=== PATIENT | male | born 1965 | race Caucasian/White ===

== ENCOUNTER → 2020-01-06 14:52 | Outpatient (CLI) | payer OTHER, SELFPAY ==
[2020-01-06 15:48] LABS: Hematocrit 29.1 % (41-53); Hemoglobin 9.4 g/dL (13.5-17.5); Mean Corpuscular HGB Conc 32.3 % (30-36); Mean Corpuscular Hemoglobin 27.4 PG (26-34); Mean Corpuscular Volume 84.8 fL (80-100); Platelet Count 250 X10^3/uL (150-400); Red Blood Cell Count 3.43 X10^6/uL (4.5-5.9); Red Cell Distribution Width 17.6 % (11.6-14.8); White Blood Cell Count 7.1 X10^3/uL (4.5-11.0)
[2020-01-06 15:52] LABS: Reticulocyte Count, Percent 3.9 % (0.87-2.60)
[2020-01-06 16:01] LABS: HEMOLYSIS < 15 (0-50); Iron 54 ug/dL (49-181)
[2020-01-06 16:12] LABS: Percent Iron Saturation 13 % (20-50); Total Iron Binding Capacity 432 ug/dL (261-462); Transferrin 328 mg/dL (206-381)
== END ==
PROVIDERS: PCP Student in an Organized Health Care Education/Training Program; Referring Provider Student in an Organized Health Care Education/Training Program; Visit Provider Student in an Organized Health Care Education/Training Program
DX: D62 Acute posthemorrhagic anemia (principal)
CPT/HCPCS: 36415; 83540; 83550; 85027; 85045

== ENCOUNTER → 2021-11-23 12:13 | Outpatient (CLI) | payer OTHER, SELFPAY ==
--- NOTE | 2021-11-23 12:15 | DI.RAD.S_ITS ---
PROCEDURE: XR SHOULDER LT MIN 2V INDICATIONS: left and right shoulder pain TECHNIQUE: 3 views of the shoulder were acquired. COMPARISON: [facility] Outside Film, CR, XR SHOULDER 2+ VIEWS LEFT, 09/06/2020, 13:59. [facility] Outside Film, CT, CT SHOULDER LEFT ARTHROGRAM, 01/02/2018, 9:21. [facility] Outside Film, MR, MR SHOULDER LEFT ARTHROGRAM, 01/02/2018, 10:25. FINDINGS: Bones: No acute fractures. Acromioclavicular interval widening is present measuring 16 mm. Chronic fracture deformity of the scapula is present. Periarticular osteophyte formation at the glenohumeral joint. Ill-defined erosions within the superior humeral head measuring 7 mm and within the superomedial humeral head measuring 13 mm, new since the prior examinations.. No suspicious bony lesions. Visualized ribs appear intact. Soft tissues: No suspicious soft tissue calcifications. IMPRESSION: 1. New humeral head erosions, of uncertain significance. Initial further assessment with MRI with and without intravenous contrast is recommended. 2. Acromioclavicular separation. 3. Glenohumeral joint osteoarthritis. 4. Chronic fracture deformity of the scapula. Dictated by: Chris Malhotra M.D. on 11/23/2021 at 14:25 Transcribed by: TEODORO on 11/23/2021 at 14:27 Approved by: Chris Malhotra M.D. on 11/23/2021 at 16:55
--- NOTE | 2021-11-23 12:15 | DI.RAD.S_ITS ---
PROCEDURE: XR SHOULDER RT MIN 2V INDICATIONS: Right shoulder pain, re-assess AC joint TECHNIQUE: 3 views of the shoulder were acquired. COMPARISON: None. FINDINGS: Bones: No fractures or dislocations. No suspicious bony lesions. Visualized ribs appear intact. Periarticular osteophyte formation at the acromioclavicular and glenohumeral joints. Soft tissues: No suspicious soft tissue calcifications. IMPRESSION: Osteoarthritis. No acute fracture. No osseous lesion. If symptoms and/or clinical suspicion for pathology persist, further assessment with repeat, or advanced imaging (e.g., CT, MRI, or bone scan) may be helpful for further assessment. Dictated by: Chris Malhotra M.D. on 11/23/2021 at 14:27 Transcribed by: TEODORO on 11/23/2021 at 14:28 Approved by: Chris Malhotra M.D. on 11/23/2021 at 16:55
== END ==
PROVIDERS: PCP Student in an Organized Health Care Education/Training Program; Referring Provider Student in an Organized Health Care Education/Training Program; Visit Provider Student in an Organized Health Care Education/Training Program
DX: S43.102A Unspecified dislocation of left acromioclavicular joint, initial encounter (principal); M19.011 Primary osteoarthritis, right shoulder; M19.012 Primary osteoarthritis, left shoulder; M25.511 Pain in right shoulder; M25.512 Pain in left shoulder; S42.102 Fracture of unspecified part of scapula, left shoulder
CPT/HCPCS: 73030

== ENCOUNTER → 2022-05-30 17:17 | Outpatient (CLI) | payer OTHER, SELFPAY ==
[2022-05-30 18:31] LABS: Prolactin 22.9 ng/mL (3.7-17.9)
[2022-05-30 18:46] LABS: TSH w/ Reflex to FT4 1.65 uIU/mL (0.47-4.68)
[2022-05-30 18:50] LABS: Cortisol PM (After 5PM) 13.8 ug/dL (1.7-14.1)
[2022-06-07 14:14] LABS: Testosterone % Fr + Wkly bound 23.3 % (9.0-46.0); Testosterone Fr+Wkly bound 40.4 ng/dL (40.0-250.0); Testosterone, Total 173.5 ng/dL (264.0-916.0)
== END ==
PROVIDERS: PCP Student in an Organized Health Care Education/Training Program; Referring Provider Student in an Organized Health Care Education/Training Program; Visit Provider Student in an Organized Health Care Education/Training Program
DX: G47.69 Other sleep related movement disorders (principal); R61 Generalized hyperhidrosis; R63.4 Abnormal weight loss; R68.89 Other general symptoms and signs
CPT/HCPCS: 36415; 82533; 84146; 84403; 84443

== ENCOUNTER → 2022-08-14 12:06 | Outpatient (CLI) | payer OTHER, SELFPAY ==
--- NOTE | 2022-08-14 12:08 | DI.RAD.S_ITS ---
PROCEDURE: XR LUMBAR SPINE 2-3V INDICATIONS: Mid and low back pain. Acute on chronic TECHNIQUE: 3 views of the lumbar spine were acquired. COMPARISON: None. FINDINGS: Bones: 5 [id number] vertebrae are present. There is normal bony alignment. No vertebral body compression fractures. No suspicious bony lesions. Mild, multilevel disc height loss. Soft tissues: Overlying bowel gas pattern is normal. No suspicious soft tissue calcifications. IMPRESSION: No acute, displaced fracture or traumatic subluxation. Mild degenerative disc disease. Dictated by: Constantino Garduno M.D. on 08/14/2022 at 14:19 Approved by: Constantino Garduno M.D. on 08/14/2022 at 14:19
--- NOTE | 2022-08-14 12:08 | DI.RAD.S_ITS ---
PROCEDURE: XR THORACIC SPINE 3V INDICATIONS: Mid and low back pain. Acute on chronic TECHNIQUE: 3 views of the thoracic spine were acquired. COMPARISON: None. FINDINGS: Bones: No fractures or dislocations. No suspicious bony lesions. 12 pairs of ribs are noted, and appear intact where visualized. Multilevel degenerative disc disease, [id number]. Soft tissues: No paravertebral stripe thickening. IMPRESSION: No acute, displaced fracture or traumatic subluxation. Mild to moderate, multilevel degenerative disc disease. Dictated by: Constantino Garduno M.D. on 08/14/2022 at 14:18 Approved by: Constantino Garduno M.D. on 08/14/2022 at 14:19
== END ==
PROVIDERS: PCP Student in an Organized Health Care Education/Training Program; Referring Provider Student in an Organized Health Care Education/Training Program; Visit Provider Student in an Organized Health Care Education/Training Program
DX: M51.34 Other intervertebral disc degeneration, thoracic region (principal); M51.36 Other intervertebral disc degeneration, lumbar region; M54.9 Dorsalgia, unspecified
CPT/HCPCS: 72072; 72100

== ENCOUNTER → 2024-04-23 16:04 | Outpatient (CLI) | payer MEDICARE, SELFPAY ==
--- NOTE | 2024-04-23 16:07 | DI.MRI.S_ITS ---
PROCEDURE: MR FOOT RT WO/W CON INDICATIONS: bone erosion TECHNIQUE: Multiphasic, multisequence MRI of the forefoot was performed, before and after intravenous contrast administration. COMPARISON: None. FINDINGS: Image quality: Excellent. Bones and joints: There is extensive soft tissue enhancement about the 1st metatarsal head, with associated erosion, concerning for gout with associated tophi. There is marked marrow edema of the 1st proximal phalanx, and the 1st metatarsal, with relative sparing of the 1st metatarsal base. Edema of both the tibial and fibula hallucal sesamoid, concerning for sesamoiditis versus reactive marrow edema. The mild degenerative changes of the 3rd tarsometatarsal joint, with mild subchondral marrow edema. No acute fracture. Soft tissues: The visualized plantar fascia is unremarkable. Muscles are grossly normal in signal. The flexor, and the extensor tendons are unremarkable. The Lisfranc ligament is intact. Mild 1st intermetatarsal bursitis. IMPRESSION: 1. Findings concerning for gout at the 1st metatarsophalangeal joint, with enhancing tophi, erosion, and marked associated marrow edema. Recommend clinical correlation or further evaluation with dual source CT. 2. Reactive marrow edema versus sesamoiditis of both the tibial and fibula hallucal sesamoid. Dictated by: Kayley Schwartz M.D. on 04/24/2024 at 10:38 Approved by: Kayley Schwartz M.D. on 04/24/2024 at 10:49
== END ==
LOC: MRI 16:06
PROVIDERS: PCP Nurse Practitioner; Referring Provider Orthopaedic Surgery Foot and Ankle Surgery; Visit Provider Orthopaedic Surgery Foot and Ankle Surgery
DX: M85.80 Other specified disorders of bone density and structure, unspecified site (principal)
CPT/HCPCS: 73720; A9579

== ENCOUNTER 2024-08-14 13:39 | Emergency (ER) | payer MEDICARE, SELFPAY ==
[2024-08-14] VITALS (74 sets, daily range): BP systolic 120–162; BP diastolic 72–106; PULSE 63–89; RESP 15–35; O2SAT 90–100
[2024-08-14] MEDS: LORazepam 2 MG/ML INJ IV (13:40)
--- NOTE | 2024-08-14 13:45 | ED_ITS ---
HPI - General Adult <Sohail Adair MD - Last Filed: 08/14/24 20:43> General Chief complaint: Seizure Stated complaint: seizure disorder Time Seen by Provider: 08/14/24 13:45 History of Present Illness HPI narrative: 59-year-old male arrived by EMS, with history of seizure disorder for which she has been taking Vimpat, generalized anxiety, atrial fibrillation, chronic Eliquis anticoagulation. Short EMS transport for suspected seizures, seemed to be shaking on the right side, lateral gaze to the right side, right lateral rotation of the neck, not seem to be moving his left side. On arrival there was no family available. Related Data Home Medications Medication Instructions Recorded Confirmed cholecalciferol (vitamin D3) 25 25 mcg PO DAILY 01/06/20 08/14/24 mcg (1,000 unit) capsule lacosamide 50 mg tablet 300 mg PO BID 11/23/21 08/14/24 atomoxetine 25 mg capsule 25 mg PO BID 08/14/24 08/14/24 escitalopram oxalate 20 mg tablet 30 mg PO DAILY 08/14/24 08/14/24 gabapentin 600 mg tablet 600 mg PO QID 08/14/24 08/14/24 hydroxyzine HCl 50 mg tablet 25 mg PO BID PRN anxiety 08/14/24 08/14/24 quetiapine 25 mg tablet (Seroquel) 75 mg PO BEDTIME 08/14/24 08/14/24 quetiapine 50 mg tablet (Seroquel) 50 mg PO QAM 08/14/24 08/14/24 Previous Rx's Medication Instructions Recorded clonazepam 0.5 mg tablet 0.5 mg PO BEDTIME PRN insomnia #30 12/18/22 tabs Allergies Allergy/AdvReac Type Severity Reaction Status Date / Time ketorolac [From Toradol] AdvReac Severe Hyponatremi Verified 09/26/22 13:04 a oxycodone AdvReac Severe hallucinations, Verified 09/26/22 13:04 delirium Patient History <Sohail Adair MD - Last Filed: 08/14/24 20:43> Medical History (Updated 08/14/24 @ 19:43 by Jeb Ignacio DO) Chronic left shoulder pain Allergic rhinitis Surgical History (Updated 06/01/21 @ 09:06 by João Armstrong MD) Status post mitral valve repair Exam <Sohail Adair MD - Last Filed: 08/14/24 20:43> Narrative Exam Narrative: GENERAL: On arrival patient with ongoing shaking activity. HEAD: Atraumatic. Normocephalic. EYES: Pupils equal round and reactive. Extraocular motions intact. No scleral icterus. No injection or drainage. ENT: Face and nose without obvious anterior trauma swelling, no obvious nosebleed. NECK: Trachea midline. Non tender CARDIOVASCULAR: Fast rate regular rhythm, without murmurs, gallops, or rubs. RESPIRATORY: Clear to auscultation. Breath sounds equal bilaterally. No wheezes, rales, or rhonchi. GASTROINTESTINAL: Abdomen soft, non-tender, nondistended. EXTREMITIES: No edema or joint tenderness. BACK: Nontender without deformity or crepitance. No flank tenderness. NEURO: AOx3. Looking around, unintelligible speech. Shaking activity of right upper extremity and right lower extremity, not seeming to move his left upper extremity or left lower extremity. Prefers right lateral gaze position, right lateral neck rotation position, seems to be flailing around with right upper arm and right upper leg, no movement left arm or leg. SKIN: No rash or erythema of visible areas Initial Vital Signs Initial Vital Signs: Vital Signs Respiratory Rate 18 08/14/24 13:40 <Jeb Ignacio DO - Last Filed: 08/14/24 20:08> Initial Vital Signs Initial Vital Signs: Vital Signs Respiratory Rate 18 08/14/24 13:40 Course <Sohail Adair MD - Last Filed: 08/14/24 20:43> Orders Ordered: ED Orders 08/14/24 13:40 Acetaminophen Stat Complete Blood Count AUTO DIFF Stat Comprehensive Metabolic Panel Stat Ethanol (ETOH) Stat PTT Partial Thromboplastin Emmanuel Stat Prolactin Stat Prothrombin Time INR Stat Salicylate Stat Thyroid Stimulating Hormone Stat 08/14/24 13:49 CT head/brain wo con Stat 08/14/24 13:54 Ammonia (NH3) Stat 08/14/24 14:30 Blood Culture Stat Lactate (Lactic Acid) Stat 08/14/24 14:56 Osmolality, Serum Stat 08/14/24 15:08 Urinalysis and Microscopic Stat Urine Culture Stat Urine Drug Screen, Rapid Stat 08/14/24 15:12 XR chest 1V Stat 08/14/24 15:52 Ammonia (NH3) Stat Lactate (Lactic Acid) Stat Discontinued Medications Sodium Chloride (Normal Saline 0.9%) 1,000 mls @ 1,000 mls/hr IV BOLUS ONE Stop: 08/14/24 14:47 Last Infusion: 08/14/24 15:38 Dose: Infused Documented By: Admin: 08/14/24 14:31 Dose: 1,000 mls/hr Documented By: CLIF Levetiracetam 2,000 mg/ Sodium (Chloride) 120 mls @ 480 mls/hr IV NOW ONE Stop: 08/14/24 14:37 Last Infusion: 08/14/24 15:14 Dose: Infused Documented By: Admin: 08/14/24 14:50 Dose: 480 mls/hr Documented By: MANDI Lorazepam (Lorazepam 2 Mg/Ml Inj) 2 mg IV NOW ONE Stop: 08/14/24 13:48 Last Admin: 08/14/24 13:40 Dose: 2 mg Documented By: CLIF Vital Signs Vital signs: Vital Signs - 8 hr 08/14/24 13:40 08/14/24 13:41 08/14/24 13:44 Pulse Rate 84 89 Respiratory Rate 18 26 H Blood Pressure 162/97 H Pulse Oximetry 99 99 Oxygen Delivery Method Room Air Oxygen Flow Rate 08/14/24 13:45 08/14/24 13:45 08/14/24 13:55 Pulse Rate 89 Respiratory Rate Blood Pressure 162/97 H 156/96 H Pulse Oximetry 95 Oxygen Delivery Method Oxygen Flow Rate 08/14/24 13:55 08/14/24 14:00 08/14/24 14:00 Pulse Rate 83 84 Respiratory Rate 25 H 26 H Blood Pressure 144/89 H Pulse Oximetry 94 95 Oxygen Delivery Method Oxygen Flow Rate 08/14/24 14:05 08/14/24 14:05 08/14/24 14:10 Pulse Rate 81 80 Respiratory Rate 23 22 Blood Pressure 136/86 Pulse Oximetry 98 97 Oxygen Delivery Method Oxygen Flow Rate 08/14/24 14:10 08/14/24 14:19 08/14/24 14:19 Pulse Rate 78 Respiratory Rate 16 Blood Pressure 130/85 120/81 Pulse Oximetry 98 Oxygen Delivery Method Nasal Cannula Oxygen Flow Rate 2 08/14/24 14:20 08/14/24 14:20 08/14/24 14:25 Pulse Rate 78 77 Respiratory Rate 16 15 Blood Pressure 131/81 Pulse Oximetry 96 Oxygen Delivery Method Oxygen Flow Rate 08/14/24 14:25 08/14/24 14:30 08/14/24 14:30 Pulse Rate 76 Respiratory Rate 25 H Blood Pressure 128/88 133/85 Pulse Oximetry 90 L Oxygen Delivery Method Oxygen Flow Rate 08/14/24 14:35 08/14/24 14:35 08/14/24 14:40 Pulse Rate 75 74 Respiratory Rate 22 20 Blood Pressure 132/82 Pulse Oximetry 93 91 Oxygen Delivery Method Oxygen Flow Rate 08/14/24 14:40 08/14/24 14:45 08/14/24 14:45 Pulse Rate 76 Respiratory Rate 25 H Blood Pressure 137/88 134/85 Pulse Oximetry 93 Oxygen Delivery Method Oxygen Flow Rate 08/14/24 14:50 08/14/24 14:50 08/14/24 14:55 Pulse Rate 77 74 Respiratory Rate 19 23 Blood Pressure 132/82 Pulse Oximetry 94 94 Oxygen Delivery Method Oxygen Flow Rate 08/14/24 14:55 08/14/24 15:00 08/14/24 15:05 Pulse Rate 79 76 Respiratory Rate 35 H 28 H Blood Pressure 136/84 Pulse Oximetry 99 97 Oxygen Delivery Method Oxygen Flow Rate 08/14/24 15:05 08/14/24 15:45 08/14/24 15:45 Pulse Rate 80 Respiratory Rate 19 Blood Pressure 133/79 124/73 Pulse Oximetry 94 Oxygen Delivery Method Room Air Oxygen Flow Rate 08/14/24 15:50 08/14/24 15:50 08/14/24 15:55 Pulse Rate 80 78 Respiratory Rate 17 18 Blood Pressure 124/76 Pulse Oximetry 96 96 Oxygen Delivery Method Oxygen Flow Rate 08/14/24 15:55 08/14/24 16:00 08/14/24 16:00 Pulse Rate 80 Respiratory Rate 18 Blood Pressure 131/89 134/87 Pulse Oximetry Oxygen Delivery Method Oxygen Flow Rate 08/14/24 16:05 08/14/24 16:05 08/14/24 16:10 Pulse Rate 76 76 Respiratory Rate 19 19 Blood Pressure 126/81 Pulse Oximetry 94 94 Oxygen Delivery Method Oxygen Flow Rate 08/14/24 16:10 08/14/24 16:15 08/14/24 16:15 Pulse Rate 77 Respiratory Rate 20 Blood Pressure 140/85 143/88 H Pulse Oximetry 96 Oxygen Delivery Method Oxygen Flow Rate 08/14/24 16:20 08/14/24 16:20 08/14/24 16:25 Pulse Rate 75 Respiratory Rate 18 Blood Pressure 131/81 132/79 Pulse Oximetry 95 Oxygen Delivery Method Nasal Cannula Oxygen Flow Rate 08/14/24 16:25 08/14/24 16:30 08/14/24 16:30 Pulse Rate 75 69 Respiratory Rate 18 17 Blood Pressure 130/85 Pulse Oximetry 95 96 Oxygen Delivery Method Oxygen Flow Rate 08/14/24 16:35 08/14/24 16:35 08/14/24 16:40 Pulse Rate 74 69 Respiratory Rate 17 17 Blood Pressure 134/83 Pulse Oximetry 95 98 Oxygen Delivery Method Oxygen Flow Rate 08/14/24 16:40 08/14/24 16:45 08/14/24 16:45 Pulse Rate 77 Respiratory Rate 18 Blood Pressure 137/86 139/92 H Pulse Oximetry 95 Oxygen Delivery Method Oxygen Flow Rate 08/14/24 16:50 08/14/24 16:50 08/14/24 16:55 Pulse Rate 72 70 Respiratory Rate 17 18 Blood Pressure 139/97 H Pulse Oximetry 97 97 Oxygen Delivery Method Oxygen Flow Rate 08/14/24 16:55 08/14/24 17:00 08/14/24 17:00 Pulse Rate 70 Respiratory Rate 17 Blood Pressure 144/100 H 153/87 H Pulse Oximetry 97 Oxygen Delivery Method Oxygen Flow Rate 08/14/24 17:05 08/14/24 17:05 08/14/24 17:10 Pulse Rate 85 Respiratory Rate 17 Blood Pressure 156/97 H 156/101 H Pulse Oximetry 96 Oxygen Delivery Method Oxygen Flow Rate 08/14/24 17:10 08/14/24 17:15 08/14/24 17:15 Pulse Rate 69 73 Respiratory Rate 15 17 Blood Pressure 158/106 H Pulse Oximetry 99 95 Oxygen Delivery Method Oxygen Flow Rate 08/14/24 17:20 08/14/24 17:20 08/14/24 17:25 Pulse Rate 68 70 Respiratory Rate 18 16 Blood Pressure 154/93 H Pulse Oximetry 98 98 Oxygen Delivery Method Oxygen Flow Rate 08/14/24 17:25 08/14/24 17:30 08/14/24 17:30 Pulse Rate 73 Respiratory Rate 18 Blood Pressure 148/95 H 146/102 H Pulse Oximetry 98 Oxygen Delivery Method Room Air Oxygen Flow Rate 08/14/24 17:35 08/14/24 17:35 08/14/24 17:40 Pulse Rate 71 75 Respiratory Rate 18 15 Blood Pressure 135/88 Pulse Oximetry 97 97 Oxygen Delivery Method Oxygen Flow Rate 08/14/24 17:40 08/14/24 17:45 08/14/24 17:45 Pulse Rate 72 Respiratory Rate 15 Blood Pressure 154/94 H 145/89 H Pulse Oximetry 97 Oxygen Delivery Method Oxygen Flow Rate 08/14/24 17:50 08/14/24 17:50 08/14/24 17:55 Pulse Rate 70 Respiratory Rate 18 Blood Pressure 148/90 H 137/87 Pulse Oximetry 97 Oxygen Delivery Method Room Air Oxygen Flow Rate 08/14/24 17:55 08/14/24 18:00 08/14/24 18:00 Pulse Rate 73 73 Respiratory Rate 16 16 Blood Pressure 149/92 H Pulse Oximetry 96 95 Oxygen Delivery Method Oxygen Flow Rate 08/14/24 18:06 08/14/24 18:06 08/14/24 18:10 Pulse Rate 74 Respiratory Rate 16 Blood Pressure 137/81 138/84 Pulse Oximetry 95 Oxygen Delivery Method Room Air Oxygen Flow Rate 08/14/24 18:10 08/14/24 18:15 08/14/24 18:15 Pulse Rate 75 72 Respiratory Rate 17 17 Blood Pressure 126/79 Pulse Oximetry 95 97 Oxygen Delivery Method Oxygen Flow Rate 08/14/24 18:20 08/14/24 18:20 08/14/24 18:25 Pulse Rate 74 74 Respiratory Rate 17 16 Blood Pressure 132/84 Pulse Oximetry 94 94 Oxygen Delivery Method Oxygen Flow Rate 08/14/24 18:25 08/14/24 18:30 08/14/24 18:30 Pulse Rate 72 Respiratory Rate 17 Blood Pressure 137/85 138/88 Pulse Oximetry 94 Oxygen Delivery Method Oxygen Flow Rate 08/14/24 18:35 08/14/24 18:35 08/14/24 18:40 Pulse Rate 72 69 Respiratory Rate 16 18 Blood Pressure 153/94 H Pulse Oximetry 95 96 Oxygen Delivery Method Oxygen Flow Rate 08/14/24 18:40 08/14/24 18:45 08/14/24 18:45 Pulse Rate 69 Respiratory Rate 17 Blood Pressure 141/92 H 142/94 H Pulse Oximetry 95 Oxygen Delivery Method Oxygen Flow Rate 08/14/24 18:50 08/14/24 18:50 08/14/24 18:55 Pulse Rate 72 68 Respiratory Rate 17 17 Blood Pressure 142/92 H Pulse Oximetry 96 94 Oxygen Delivery Method Oxygen Flow Rate 08/14/24 18:55 08/14/24 19:00 08/14/24 19:00 Pulse Rate 71 Respiratory Rate 20 Blood Pressure 140/90 154/102 H Pulse Oximetry 97 Oxygen Delivery Method Oxygen Flow Rate 08/14/24 19:05 08/14/24 19:05 08/14/24 19:10 Pulse Rate 69 68 Respiratory Rate 24 20 Blood Pressure 141/104 H Pulse Oximetry 97 97 Oxygen Delivery Method Oxygen Flow Rate 08/14/24 19:10 08/14/24 19:16 08/14/24 19:16 Pulse Rate 69 Respiratory Rate 30 H Blood Pressure 147/104 H 150/96 H Pulse Oximetry 96 Oxygen Delivery Method Oxygen Flow Rate 08/14/24 19:20 08/14/24 19:20 08/14/24 19:25 Pulse Rate 67 67 Respiratory Rate 20 24 Blood Pressure 141/94 H Pulse Oximetry 96 97 Oxygen Delivery Method Oxygen Flow Rate 08/14/24 19:25 08/14/24 19:30 08/14/24 19:30 Pulse Rate 67 Respiratory Rate 22 Blood Pressure 142/97 H 158/72 H Pulse Oximetry 97 Oxygen Delivery Method Oxygen Flow Rate 08/14/24 19:36 08/14/24 19:36 08/14/24 19:40 Pulse Rate 67 67 Respiratory Rate 22 24 Blood Pressure 153/83 H Pulse Oximetry 99 97 Oxygen Delivery Method Oxygen Flow Rate 08/14/24 19:40 08/14/24 19:45 08/14/24 19:45 Pulse Rate 65 Respiratory Rate 24 Blood Pressure 144/88 H 122/80 Pulse Oximetry 98 Oxygen Delivery Method Oxygen Flow Rate 08/14/24 19:50 08/14/24 19:50 08/14/24 19:55 Pulse Rate 63 64 Respiratory Rate 26 H 22 Blood Pressure 139/95 H Pulse Oximetry 97 97 Oxygen Delivery Method Oxygen Flow Rate 08/14/24 19:55 08/14/24 20:00 08/14/24 20:00 Pulse Rate 63 Respiratory Rate 22 Blood Pressure 142/95 H 124/86 Pulse Oximetry 97 Oxygen Delivery Method Oxygen Flow Rate 08/14/24 20:05 08/14/24 20:05 08/14/24 20:10 Pulse Rate 64 Respiratory Rate 20 Blood Pressure 124/87 154/96 H Pulse Oximetry 97 Oxygen Delivery Method Oxygen Flow Rate 08/14/24 20:10 08/14/24 20:15 08/14/24 20:15 Pulse Rate 65 67 Respiratory Rate 26 H 18 Blood Pressure 150/95 H Pulse Oximetry 97 97 Oxygen Delivery Method Oxygen Flow Rate <Jeb Ignacio, DO - Last Filed: 08/14/24 20:08> Orders Ordered: ED Orders 08/14/24 13:40 Acetaminophen Stat Complete Blood Count AUTO DIFF Stat Comprehensive Metabolic Panel Stat Ethanol (ETOH) Stat PTT Partial Thromboplastin Emmanuel Stat Prolactin Stat Prothrombin Time INR Stat Salicylate Stat Thyroid Stimulating Hormone Stat 08/14/24 13:49 CT head/brain wo con Stat 08/14/24 13:54 Ammonia (NH3) Stat 08/14/24 14:30 Blood Culture Stat Lactate (Lactic Acid) Stat 08/14/24 14:56 Osmolality, Serum Stat 08/14/24 15:08 Urinalysis and Microscopic Stat Urine Culture Stat Urine Drug Screen, Rapid Stat 08/14/24 15:12 XR chest 1V Stat 08/14/24 15:52 Ammonia (NH3) Stat Lactate (Lactic Acid) Stat Discontinued Medications Sodium Chloride (Normal Saline 0.9%) 1,000 mls @ 1,000 mls/hr IV BOLUS ONE Stop: 08/14/24 14:47 Last Infusion: 08/14/24 15:38 Dose: Infused Documented By: Admin: 08/14/24 14:31 Dose: 1,000 mls/hr Documented By: CLIF Levetiracetam 2,000 mg/ Sodium (Chloride) 120 mls @ 480 mls/hr IV NOW ONE Stop: 08/14/24 14:37 Last Infusion: 08/14/24 15:14 Dose: Infused Documented By: Admin: 08/14/24 14:50 Dose: 480 mls/hr Documented By: MANDI Lorazepam (Lorazepam 2 Mg/Ml Inj) 2 mg IV NOW ONE Stop: 08/14/24 13:48 Last Admin: 08/14/24 13:40 Dose: 2 mg Documented By: CLIF Vital Signs Vital signs: Vital Signs - 8 hr 08/14/24 13:40 08/14/24 13:41 08/14/24 13:44 Pulse Rate 84 89 Respiratory Rate 18 26 H Blood Pressure 162/97 H Pulse Oximetry 99 99 Oxygen Delivery Method Room Air Oxygen Flow Rate 08/14/24 13:45 08/14/24 13:45 08/14/24 13:55 Pulse Rate 89 Respiratory Rate Blood Pressure 162/97 H 156/96 H Pulse Oximetry 95 Oxygen Delivery Method Oxygen Flow Rate 08/14/24 13:55 08/14/24 14:00 08/14/24 14:00 Pulse Rate 83 84 Respiratory Rate 25 H 26 H Blood Pressure 144/89 H Pulse Oximetry 94 95 Oxygen Delivery Method Oxygen Flow Rate 08/14/24 14:05 08/14/24 14:05 08/14/24 14:10 Pulse Rate 81 80 Respiratory Rate 23 22 Blood Pressure 136/86 Pulse Oximetry 98 97 Oxygen Delivery Method Oxygen Flow Rate 08/14/24 14:10 08/14/24 14:19 08/14/24 14:19 Pulse Rate 78 Respiratory Rate 16 Blood Pressure 130/85 120/81 Pulse Oximetry 98 Oxygen Delivery Method Nasal Cannula Oxygen Flow Rate 2 08/14/24 14:20 08/14/24 14:20 08/14/24 14:25 Pulse Rate 78 77 Respiratory Rate 16 15 Blood Pressure 131/81 Pulse Oximetry 96 Oxygen Delivery Method Oxygen Flow Rate 08/14/24 14:25 08/14/24 14:30 08/14/24 14:30 Pulse Rate 76 Respiratory Rate 25 H Blood Pressure 128/88 133/85 Pulse Oximetry 90 L Oxygen Delivery Method Oxygen Flow Rate 08/14/24 14:35 08/14/24 14:35 08/14/24 14:40 Pulse Rate 75 74 Respiratory Rate 22 20 Blood Pressure 132/82 Pulse Oximetry 93 91 Oxygen Delivery Method Oxygen Flow Rate 08/14/24 14:40 08/14/24 14:45 08/14/24 14:45 Pulse Rate 76 Respiratory Rate 25 H Blood Pressure 137/88 134/85 Pulse Oximetry 93 Oxygen Delivery Method Oxygen Flow Rate 08/14/24 14:50 08/14/24 14:50 08/14/24 14:55 Pulse Rate 77 74 Respiratory Rate 19 23 Blood Pressure 132/82 Pulse Oximetry 94 94 Oxygen Delivery Method Oxygen Flow Rate 08/14/24 14:55 08/14/24 15:00 08/14/24 15:05 Pulse Rate 79 76 Respiratory Rate 35 H 28 H Blood Pressure 136/84 Pulse Oximetry 99 97 Oxygen Delivery Method Oxygen Flow Rate 08/14/24 15:05 08/14/24 15:45 08/14/24 15:45 Pulse Rate 80 Respiratory Rate 19 Blood Pressure 133/79 124/73 Pulse Oximetry 94 Oxygen Delivery Method Room Air Oxygen Flow Rate 08/14/24 15:50 08/14/24 15:50 08/14/24 15:55 Pulse Rate 80 78 Respiratory Rate 17 18 Blood Pressure 124/76 Pulse Oximetry 96 96 Oxygen Delivery Method Oxygen Flow Rate 08/14/24 15:55 08/14/24 16:00 08/14/24 16:00 Pulse Rate 80 Respiratory Rate 18 Blood Pressure 131/89 134/87 Pulse Oximetry Oxygen Delivery Method Oxygen Flow Rate 08/14/24 16:05 08/14/24 16:05 08/14/24 16:10 Pulse Rate 76 76 Respiratory Rate 19 19 Blood Pressure 126/81 Pulse Oximetry 94 94 Oxygen Delivery Method Oxygen Flow Rate 08/14/24 16:10 08/14/24 16:15 08/14/24 16:15 Pulse Rate 77 Respiratory Rate 20 Blood Pressure 140/85 143/88 H Pulse Oximetry 96 Oxygen Delivery Method Oxygen Flow Rate 08/14/24 16:20 08/14/24 16:20 08/14/24 16:25 Pulse Rate 75 Respiratory Rate 18 Blood Pressure 131/81 132/79 Pulse Oximetry 95 Oxygen Delivery Method Nasal Cannula Oxygen Flow Rate 08/14/24 16:25 08/14/24 16:30 08/14/24 16:30 Pulse Rate 75 69 Respiratory Rate 18 17 Blood Pressure 130/85 Pulse Oximetry 95 96 Oxygen Delivery Method Oxygen Flow Rate 08/14/24 16:35 08/14/24 16:35 08/14/24 16:40 Pulse Rate 74 69 Respiratory Rate 17 17 Blood Pressure 134/83 Pulse Oximetry 95 98 Oxygen Delivery Method Oxygen Flow Rate 08/14/24 16:40 08/14/24 16:45 08/14/24 16:45 Pulse Rate 77 Respiratory Rate 18 Blood Pressure 137/86 139/92 H Pulse Oximetry 95 Oxygen Delivery Method Oxygen Flow Rate 08/14/24 16:50 08/14/24 16:50 08/14/24 16:55 Pulse Rate 72 70 Respiratory Rate 17 18 Blood Pressure 139/97 H Pulse Oximetry 97 97 Oxygen Delivery Method Oxygen Flow Rate 08/14/24 16:55 08/14/24 17:00 08/14/24 17:00 Pulse Rate 70 Respiratory Rate 17 Blood Pressure 144/100 H 153/87 H Pulse Oximetry 97 Oxygen Delivery Method Oxygen Flow Rate 08/14/24 17:05 08/14/24 17:05 08/14/24 17:10 Pulse Rate 85 Respiratory Rate 17 Blood Pressure 156/97 H 156/101 H Pulse Oximetry 96 Oxygen Delivery Method Oxygen Flow Rate 08/14/24 17:10 08/14/24 17:15 08/14/24 17:15 Pulse Rate 69 73 Respiratory Rate 15 17 Blood Pressure 158/106 H Pulse Oximetry 99 95 Oxygen Delivery Method Oxygen Flow Rate 08/14/24 17:20 08/14/24 17:20 08/14/24 17:25 Pulse Rate 68 70 Respiratory Rate 18 16 Blood Pressure 154/93 H Pulse Oximetry 98 98 Oxygen Delivery Method Oxygen Flow Rate 08/14/24 17:25 08/14/24 17:30 08/14/24 17:30 Pulse Rate 73 Respiratory Rate 18 Blood Pressure 148/95 H 146/102 H Pulse Oximetry 98 Oxygen Delivery Method Room Air Oxygen Flow Rate 08/14/24 17:35 08/14/24 17:35 08/14/24 17:40 Pulse Rate 71 75 Respiratory Rate 18 15 Blood Pressure 135/88 Pulse Oximetry 97 97 Oxygen Delivery Method Oxygen Flow Rate 08/14/24 17:40 08/14/24 17:45 08/14/24 17:45 Pulse Rate 72 Respiratory Rate 15 Blood Pressure 154/94 H 145/89 H Pulse Oximetry 97 Oxygen Delivery Method Oxygen Flow Rate 08/14/24 17:50 08/14/24 17:50 08/14/24 17:55 Pulse Rate 70 Respiratory Rate 18 Blood Pressure 148/90 H 137/87 Pulse Oximetry 97 Oxygen Delivery Method Room Air Oxygen Flow Rate 08/14/24 17:55 08/14/24 18:00 08/14/24 18:00 Pulse Rate 73 73 Respiratory Rate 16 16 Blood Pressure 149/92 H Pulse Oximetry 96 95 Oxygen Delivery Method Oxygen Flow Rate 08/14/24 18:06 08/14/24 18:06 08/14/24 18:10 Pulse Rate 74 Respiratory Rate 16 Blood Pressure 137/81 138/84 Pulse Oximetry 95 Oxygen Delivery Method Room Air Oxygen Flow Rate 08/14/24 18:10 08/14/24 18:15 08/14/24 18:15 Pulse Rate 75 72 Respiratory Rate 17 17 Blood Pressure 126/79 Pulse Oximetry 95 97 Oxygen Delivery Method Oxygen Flow Rate 08/14/24 18:20 08/14/24 18:20 08/14/24 18:25 Pulse Rate 74 74 Respiratory Rate 17 16 Blood Pressure 132/84 Pulse Oximetry 94 94 Oxygen Delivery Method Oxygen Flow Rate 08/14/24 18:25 08/14/24 18:30 08/14/24 18:30 Pulse Rate 72 Respiratory Rate 17 Blood Pressure 137/85 138/88 Pulse Oximetry 94 Oxygen Delivery Method Oxygen Flow Rate 08/14/24 18:35 08/14/24 18:35 08/14/24 18:40 Pulse Rate 72 69 Respiratory Rate 16 18 Blood Pressure 153/94 H Pulse Oximetry 95 96 Oxygen Delivery Method Oxygen Flow Rate 08/14/24 18:40 08/14/24 18:45 08/14/24 18:45 Pulse Rate 69 Respiratory Rate 17 Blood Pressure 141/92 H 142/94 H Pulse Oximetry 95 Oxygen Delivery Method Oxygen Flow Rate 08/14/24 18:50 08/14/24 18:50 08/14/24 18:55 Pulse Rate 72 68 Respiratory Rate 17 17 Blood Pressure 142/92 H Pulse Oximetry 96 94 Oxygen Delivery Method Oxygen Flow Rate 08/14/24 18:55 08/14/24 19:00 08/14/24 19:00 Pulse Rate 71 Respiratory Rate 20 Blood Pressure 140/90 154/102 H Pulse Oximetry 97 Oxygen Delivery Method Oxygen Flow Rate 08/14/24 19:05 08/14/24 19:05 08/14/24 19:10 Pulse Rate 69 68 Respiratory Rate 24 20 Blood Pressure 141/104 H Pulse Oximetry 97 97 Oxygen Delivery Method Oxygen Flow Rate 08/14/24 19:10 08/14/24 19:16 08/14/24 19:16 Pulse Rate 69 Respiratory Rate 30 H Blood Pressure 147/104 H 150/96 H Pulse Oximetry 96 Oxygen Delivery Method Oxygen Flow Rate 08/14/24 19:20 08/14/24 19:20 08/14/24 19:25 Pulse Rate 67 67 Respiratory Rate 20 24 Blood Pressure 141/94 H Pulse Oximetry 96 97 Oxygen Delivery Method Oxygen Flow Rate 08/14/24 19:25 08/14/24 19:30 08/14/24 19:30 Pulse Rate 67 Respiratory Rate 22 Blood Pressure 142/97 H 158/72 H Pulse Oximetry 97 Oxygen Delivery Method Oxygen Flow Rate 08/14/24 19:36 08/14/24 19:36 08/14/24 19:40 Pulse Rate 67 67 Respiratory Rate 22 24 Blood Pressure 153/83 H Pulse Oximetry 99 97 Oxygen Delivery Method Oxygen Flow Rate 08/14/24 19:40 08/14/24 19:45 08/14/24 19:45 Pulse Rate 65 Respiratory Rate 24 Blood Pressure 144/88 H 122/80 Pulse Oximetry 98 Oxygen Delivery Method Oxygen Flow Rate 08/14/24 19:50 08/14/24 19:50 08/14/24 19:55 Pulse Rate 63 64 Respiratory Rate 26 H 22 Blood Pressure 139/95 H Pulse Oximetry 97 97 Oxygen Delivery Method Oxygen Flow Rate 08/14/24 19:55 08/14/24 20:00 08/14/24 20:00 Pulse Rate 63 Respiratory Rate 22 Blood Pressure 142/95 H 124/86 Pulse Oximetry 97 Oxygen Delivery Method Oxygen Flow Rate 08/14/24 20:05 08/14/24 20:05 08/14/24 20:10 Pulse Rate 64 Respiratory Rate 20 Blood Pressure 124/87 154/96 H Pulse Oximetry 97 Oxygen Delivery Method Oxygen Flow Rate 08/14/24 20:10 08/14/24 20:15 08/14/24 20:15 Pulse Rate 65 67 Respiratory Rate 26 H 18 Blood Pressure 150/95 H Pulse Oximetry 97 97 Oxygen Delivery Method Oxygen Flow Rate Medical Decision Making <Sohail Adair MD - Last Filed: 08/14/24 20:43> Lab Data Lab results narrative: POC glucose 92 initial. White blood cell count 61701, hemoglobin 15, platelets 424. Sodium 146, potassium 5.5, serum CO2 15, serum chloride 105. BUN 17 with creatinine 1.14 normal renal function. Glucose 123. Liver functions normal. Ammonia level 177. Prolactin level 54. Ethanol level negative. Acetaminophen negative. Salicylate negative. Urine tox screen positive for benzodiazepine and THC. 08/14/24 13:40 08/14/24 13:40 Labs: Lab Results 08/14/24 08/14/24 08/14/24 Range/Units 13:40 13:54 14:30 WBC 11.7 H (4.5-11.0) X10^3/uL RBC 5.00 (4.5-5.9) X10^6/uL Hgb 15.0 (13.5-17.5) g/dL Hct 46.9 (41-53) % MCV 93.7 (80-100) fL MCH 30.0 (26-34) PG MCHC 32.0 (30-36) % RDW 13.6 (11.6-14.8) % Plt Count 424 H (150-400) X10^3/uL Neut % (Auto) 44.9 L (50-75) % Lymph % (Auto) 38.0 (25-40) % [place] % (Auto) 13.0 (3-14) % Eos % (Auto) 3.4 (2-4) % Baso % (Auto) 0.7 (0-2) % Neut # (Auto) 5300 (7632-6264) /uL Lymph # (Auto) 4400 (6425-1180) /uL [place] # (Auto) 1500 H (0-900) /uL Eos # (Auto) 400 (0-450) /uL Baso # (Auto) 100 (0-100) /uL PT 11.5 (9.4-12.5) SECONDS INR 1.0 (0.9-1.3) APTT 37 H (25.1-36.5) SECONDS Sodium 146 H (137-145) mmol/L Potassium 5.5 H (3.4-5.1) mmol/L Chloride 105 (98-107) mmol/L Carbon Dioxide 15 L (22-32) mmol/L BUN 17 (9-20) mg/dL Creatinine 1.14 (0.66-1.25) mg/dL Estimated GFR > 60 (>60) mL/min BUN/Creatinine Ratio 14.9 (6-22) Glucose 123 H (70-100) mg/dL Lactate Cancelled 6.8 H* Calcium 11.0 H (8.4-10.2) mg/dL Total Bilirubin 0.8 (0.2-1.3) mg/dL AST 37 (17-59) IU/L ALT 29 (<50) IU/L Alkaline Phosphatase 111 (38-126) U/L Ammonia 177 H (9-30) umol/L Total Protein 9.7 H (6.3-8.2) g/dL Albumin 5.1 H (3.5-5.0) g/dL Globulin 4.6 H (1.7-4.1) g/dL Albumin/Globulin Ratio 1.1 (1.0-2.8) TSH 4.39 (0.47-4.68) uIU/mL Prolactin 54.1 H (3.7-17.9) ng/mL Urine Color Urine Appearance Urine pH (4.5-8.0) Ur Specific [place] (1.000-1.035) Urine Protein (Negative) Urine Glucose (UA) (Negative) g/dL Urine Ketones (NEGATIVE) Urine Occult Blood (Negative) Urine Nitrate (Negative) Urine Bilirubin (NEGATIVE) Urine Urobilinogen (0.2) E.U./dL Ur Leukocyte Esterase (NEGATIVE) Urine RBC (0-5/HPF) Urine WBC (0-5/HPF) Ur Squamous Epith Cells (0-5/HPF) Ur Transition Epith Cell (0-5/HPF) Urine Bacteria (None) Vol Urine Centrifuged Salicylates < 1.0 (<20) mg/dL U Opiates 300ng/mL cut (Negative) Ur Oxycodone Screen (Negative) Urine Methadone Screen (Negative) Acetaminophen < 10 (10-30) ug/mL Ur Barbiturates Screen (Negative) U Tricyclic Antidepress (Negative) Ur Phencyclidine Scrn (Negative) Ur Amphetamines Screen (Negative) U Methamphetamines Scrn (Negative) Ur MDMA Scrn (Ecstasy) (Negative) U Benzodiazepines Scrn (Negative) Urine Cocaine Screen (Negative) U Marijuana (THC) Screen (Negative) Urine Specific [place] (Normal) Ethyl Alcohol < 10 ( - 10) mg/dL Ur Creatinine (Normal) 08/14/24 08/14/24 08/14/24 Range/Units 15:08 15:08 15:52 WBC (4.5-11.0) X10^3/uL RBC (4.5-5.9) X10^6/uL Hgb (13.5-17.5) g/dL Hct (41-53) % MCV (80-100) fL MCH (26-34) PG MCHC (30-36) % RDW (11.6-14.8) % Plt Count (150-400) X10^3/uL Neut % (Auto) (50-75) % Lymph % (Auto) (25-40) % [place] % (Auto) (3-14) % Eos % (Auto) (2-4) % Baso % (Auto) (0-2) % Neut # (Auto) (8920-9919) /uL Lymph # (Auto) (0776-3131) /uL [place] # (Auto) (0-900) /uL Eos # (Auto) (0-450) /uL Baso # (Auto) (0-100) /uL PT (9.4-12.5) SECONDS INR (0.9-1.3) APTT (25.1-36.5) SECONDS Sodium (137-145) mmol/L Potassium (3.4-5.1) mmol/L Chloride (98-107) mmol/L Carbon Dioxide (22-32) mmol/L BUN (9-20) mg/dL Creatinine (0.66-1.25) mg/dL Estimated GFR (>60) mL/min BUN/Creatinine Ratio (6-22) Glucose (70-100) mg/dL Lactate 1.7 Calcium (8.4-10.2) mg/dL Total Bilirubin (0.2-1.3) mg/dL AST (17-59) IU/L ALT (<50) IU/L Alkaline Phosphatase (38-126) U/L Ammonia < 9 L (9-30) umol/L Total Protein (6.3-8.2) g/dL Albumin (3.5-5.0) g/dL Globulin (1.7-4.1) g/dL Albumin/Globulin Ratio (1.0-2.8) TSH (0.47-4.68) uIU/mL Prolactin (3.7-17.9) ng/mL Urine Color Yellow Urine Appearance Clear Urine pH 6.0 Normal (4.5-8.0) Ur Specific [place] 1.010 (1.000-1.035) Urine Protein Negative (Negative) Urine Glucose (UA) Negative (Negative) g/dL Urine Ketones Negative (NEGATIVE) Urine Occult Blood Trace-intact (Negative) Urine Nitrate Negative (Negative) Urine Bilirubin Negative (NEGATIVE) Urine Urobilinogen 0.2 (0.2) E.U./dL Ur Leukocyte Esterase Negative (NEGATIVE) Urine RBC 5-10/hpf H (0-5/HPF) Urine WBC 0-1/hpf (0-5/HPF) Ur Squamous Epith Cells 0-1 /hpf (0-5/HPF) Ur Transition Epith Cell 0-1/hpf (0-5/HPF) Urine Bacteria None seen (None) Vol Urine Centrifuged 10ml (spun) Salicylates (<20) mg/dL U Opiates 300ng/mL cut Negative (Negative) Ur Oxycodone Screen Negative (Negative) Urine Methadone Screen Negative (Negative) Acetaminophen (10-30) ug/mL Ur Barbiturates Screen Negative (Negative) U Tricyclic Antidepress Negative (Negative) Ur Phencyclidine Scrn Negative (Negative) Ur Amphetamines Screen Negative (Negative) U Methamphetamines Scrn Negative (Negative) Ur MDMA Scrn (Ecstasy) Negative (Negative) U Benzodiazepines Scrn Positive H (Negative) Urine Cocaine Screen Negative (Negative) U Marijuana (THC) Screen Positive H (Negative) Urine Specific [place] Normal (Normal) Ethyl Alcohol ( - 10) mg/dL Ur Creatinine Normal (Normal) 08/14/24 Range/Units 17:10 WBC (4.5-11.0) X10^3/uL RBC (4.5-5.9) X10^6/uL Hgb (13.5-17.5) g/dL Hct (41-53) % MCV (80-100) fL MCH (26-34) PG MCHC (30-36) % RDW (11.6-14.8) % Plt Count (150-400) X10^3/uL Neut % (Auto) (50-75) % Lymph % (Auto) (25-40) % [place] % (Auto) (3-14) % Eos % (Auto) (2-4) % Baso % (Auto) (0-2) % Neut # (Auto) (1962-2979) /uL Lymph # (Auto) (0917-2392) /uL [place] # (Auto) (0-900) /uL Eos # (Auto) (0-450) /uL Baso # (Auto) (0-100) /uL PT (9.4-12.5) SECONDS INR (0.9-1.3) APTT (25.1-36.5) SECONDS Sodium (137-145) mmol/L Potassium (3.4-5.1) mmol/L Chloride (98-107) mmol/L Carbon Dioxide (22-32) mmol/L BUN (9-20) mg/dL Creatinine (0.66-1.25) mg/dL Estimated GFR (>60) mL/min BUN/Creatinine Ratio (6-22) Glucose (70-100) mg/dL Lactate 1.0 Calcium (8.4-10.2) mg/dL Total Bilirubin (0.2-1.3) mg/dL AST (17-59) IU/L ALT (<50) IU/L Alkaline Phosphatase (38-126) U/L Ammonia (9-30) umol/L Total Protein (6.3-8.2) g/dL Albumin (3.5-5.0) g/dL Globulin (1.7-4.1) g/dL Albumin/Globulin Ratio (1.0-2.8) TSH (0.47-4.68) uIU/mL Prolactin (3.7-17.9) ng/mL Urine Color Urine Appearance Urine pH (4.5-8.0) Ur Specific [place] (1.000-1.035) Urine Protein (Negative) Urine Glucose (UA) (Negative) g/dL Urine Ketones (NEGATIVE) Urine Occult Blood (Negative) Urine Nitrate (Negative) Urine Bilirubin (NEGATIVE) Urine Urobilinogen (0.2) E.U./dL Ur Leukocyte Esterase (NEGATIVE) Urine RBC (0-5/HPF) Urine WBC (0-5/HPF) Ur Squamous Epith Cells (0-5/HPF) Ur Transition Epith Cell (0-5/HPF) Urine Bacteria (None) Vol Urine Centrifuged Salicylates (<20) mg/dL U Opiates 300ng/mL cut (Negative) Ur Oxycodone Screen (Negative) Urine Methadone Screen (Negative) Acetaminophen (10-30) ug/mL Ur Barbiturates Screen (Negative) U Tricyclic Antidepress (Negative) Ur Phencyclidine Scrn (Negative) Ur Amphetamines Screen (Negative) U Methamphetamines Scrn (Negative) Ur MDMA Scrn (Ecstasy) (Negative) U Benzodiazepines Scrn (Negative) Urine Cocaine Screen (Negative) U Marijuana (THC) Screen (Negative) Urine Specific [place] (Normal) Ethyl Alcohol ( - 10) mg/dL Ur Creatinine (Normal) Point of Care Testing Glucose POC 92 Point of care testing: Point of Care Testing Glucose POC [address] scan - head: Radiologist's Impression: [address] [address] [address] Scan Report Signed Patient: Anjel Saeed MR#: [id number] : 1965 Acct:[id number] Age/Sex: 59 / M Date of Service: 08/14/24 Loc: ED Accession Number: [id number] Procedure: CT head/brain wo con Ordering Provider: Sohail Adair MD PROCEDURE: CT HEAD/BRAIN WO CON INDICATIONS: alt MSE, possible seizure TECHNIQUE: Noncontrast 4.5 mm thick angled axial sections acquired from the foramen magnum to the vertex, with coronal and sagittal reformats. For radiation dose reduction, the following was used: automated exposure control, adjustment of mA and/or kV according to patient size. COMPARISON: None. FINDINGS: Image quality: Diagnostic. CSF spaces: Basal cisterns are patent. No extra-axial fluid collections. The ventricles are symmetric in size and shape. Brain: No intracranial bleeds or masses. There is cerebral volume loss for age, with resultant ventricular and sulcal prominence. There are periventricular and deep white matter chronic small vessel ischemic changes. Question posttraumatic encephalomalacia, anterior right temporal lobe/temporal tip. There is intracranial internal carotid artery atherosclerosis. Skull and face: Calvarium and visualized facial bones appear intact, without suspicious lesions. Sinuses: Visualized sinuses and mastoids are clear. IMPRESSION: No acute intracranial pathology. Possible remote traumatic injury to the right anterior temporal lobe. Dictated by: Donald Johns M.D. on 08/14/2024 at 14:24 Approved by: Donald Johns M.D. on 08/14/2024 at 14:25 Chest x-ray: Radiologist's Impression: [address] [address] XRay Report Signed Patient: Anjel Saeed MR#: [id number] : 1965 Acct:[id number] Age/Sex: 59 / M Date of Service: 08/14/24 Loc: ED Accession Number: [id number] Procedure: XR chest 1V Ordering Provider: Sohail Adair MD PROCEDURE: XR CHEST 1V INDICATIONS: alt MSE, eval for aspiration TECHNIQUE: One view of the chest was acquired. COMPARISON: None. FINDINGS: Surgical changes and devices: Sternotomy wires and prosthetic heart valve are present. Atrial appendage clip noted. Lungs and pleura: Lungs are clear. No pleural effusions or pneumothorax. Mediastinum: Mediastinal contours appear normal. Heart size is normal. Bones and chest wall: No suspicious bony lesions. Overlying soft tissues appear unremarkable. IMPRESSION: No acute cardiopulmonary abnormality is seen. Approved by: José Land M.D. on 08/14/2024 at 15:35 MDM Narrative Medical decision making narrative: 59-year-old male with history of seizure disorder, has had 40+ prior seizures apparently, arrived by EMS with shaking activity, glucose not felt to be low, shaking activity on arrival to the emergency department looked to be right upper and right lower extremity, not seeming to be moving his left upper or left lower extremity, preferring to have a right lateral neck position and right lateral gaze of his eyes, and attempting to speak with mumbling speech pattern that seemed unintelligible. No obvious facial droop. I could not get him to follow any commands. Glucose normal. IM Versed initially ordered but not immediately available, IM Ativan given. Patient had cessation of shaking activity and then seemed to be sleeping, maintaining his airway. IV access then obtained. IV Keppra 2 g load. Labs pending. CT head noncontrast scan ordered. CT head noncontrast scan, no acute changes, old changes noted. See radiology report. Labs summary: POC glucose 92 initial. White blood cell count 28354, hemoglobin 15, platelets 424. Sodium 146, potassium 5.5, serum CO2 15, serum chloride 105. BUN 17 with creatinine 1.14 normal renal function. Glucose 123. Liver functions normal. Ammonia level 177. Prolactin level 54. Ethanol level negative. Acetaminophen negative. Salicylate negative. Urine tox screen positive for benzodiazepine and THC. Initial lactate quite elevated, improved to 6, and then normalized. Consistent with recent motor activity/seizure activity. 1800, patient is still sleeping after presumed seizure activity. Apparently did take his Vimpat this afternoon. Further observation to see if mental status improves, for disposition planning. at bedside might be able to provide further history. Signed out to Dr Ignacio. <Jeb Ignacio, DO - Last Filed: 08/14/24 20:08> Lab Data Labs: Lab Results 08/14/24 08/14/24 08/14/24 Range/Units 13:40 13:54 14:30 WBC 11.7 H (4.5-11.0) X10^3/uL RBC 5.00 (4.5-5.9) X10^6/uL Hgb 15.0 (13.5-17.5) g/dL Hct 46.9 (41-53) % MCV 93.7 (80-100) fL MCH 30.0 (26-34) PG MCHC 32.0 (30-36) % RDW 13.6 (11.6-14.8) % Plt Count 424 H (150-400) X10^3/uL Neut % (Auto) 44.9 L (50-75) % Lymph % (Auto) 38.0 (25-40) % [place] % (Auto) 13.0 (3-14) % Eos % (Auto) 3.4 (2-4) % Baso % (Auto) 0.7 (0-2) % Neut # (Auto) 5300 (6858-2794) /uL Lymph # (Auto) 4400 (9587-2091) /uL [place] # (Auto) 1500 H (0-900) /uL Eos # (Auto) 400 (0-450) /uL Baso # (Auto) 100 (0-100) /uL PT 11.5 (9.4-12.5) SECONDS INR 1.0 (0.9-1.3) APTT 37 H (25.1-36.5) SECONDS Sodium 146 H (137-145) mmol/L Potassium 5.5 H (3.4-5.1) mmol/L Chloride 105 (98-107) mmol/L Carbon Dioxide 15 L (22-32) mmol/L BUN 17 (9-20) mg/dL Creatinine 1.14 (0.66-1.25) mg/dL Estimated GFR > 60 (>60) mL/min BUN/Creatinine Ratio 14.9 (6-22) Glucose 123 H (70-100) mg/dL Lactate Cancelled 6.8 H* Calcium 11.0 H (8.4-10.2) mg/dL Total Bilirubin 0.8 (0.2-1.3) mg/dL AST 37 (17-59) IU/L ALT 29 (<50) IU/L Alkaline Phosphatase 111 (38-126) U/L Ammonia 177 H (9-30) umol/L Total Protein 9.7 H (6.3-8.2) g/dL Albumin 5.1 H (3.5-5.0) g/dL Globulin 4.6 H (1.7-4.1) g/dL Albumin/Globulin Ratio 1.1 (1.0-2.8) TSH 4.39 (0.47-4.68) uIU/mL Prolactin 54.1 H (3.7-17.9) ng/mL Urine Color Urine Appearance Urine pH (4.5-8.0) Ur Specific [place] (1.000-1.035) Urine Protein (Negative) Urine Glucose (UA) (Negative) g/dL Urine Ketones (NEGATIVE) Urine Occult Blood (Negative) Urine Nitrate (Negative) Urine Bilirubin (NEGATIVE) Urine Urobilinogen (0.2) E.U./dL Ur Leukocyte Esterase (NEGATIVE) Urine RBC (0-5/HPF) Urine WBC (0-5/HPF) Ur Squamous Epith Cells (0-5/HPF) Ur Transition Epith Cell (0-5/HPF) Urine Bacteria (None) Vol Urine Centrifuged Salicylates < 1.0 (<20) mg/dL U Opiates 300ng/mL cut (Negative) Ur Oxycodone Screen (Negative) Urine Methadone Screen (Negative) Acetaminophen < 10 (10-30) ug/mL Ur Barbiturates Screen (Negative) U Tricyclic Antidepress (Negative) Ur Phencyclidine Scrn (Negative) Ur Amphetamines Screen (Negative) U Methamphetamines Scrn (Negative) Ur MDMA Scrn (Ecstasy) (Negative) U Benzodiazepines Scrn (Negative) Urine Cocaine Screen (Negative) U Marijuana (THC) Screen (Negative) Urine Specific [place] (Normal) Ethyl Alcohol < 10 ( - 10) mg/dL Ur Creatinine (Normal) 08/14/24 08/14/24 08/14/24 Range/Units 15:08 15:08 15:52 WBC (4.5-11.0) X10^3/uL RBC (4.5-5.9) X10^6/uL Hgb (13.5-17.5) g/dL Hct (41-53) % MCV (80-100) fL MCH (26-34) PG MCHC (30-36) % RDW (11.6-14.8) % Plt Count (150-400) X10^3/uL Neut % (Auto) (50-75) % Lymph % (Auto) (25-40) % [place] % (Auto) (3-14) % Eos % (Auto) (2-4) % Baso % (Auto) (0-2) % Neut # (Auto) (4541-2859) /uL Lymph # (Auto) (9265-7312) /uL [place] # (Auto) (0-900) /uL Eos # (Auto) (0-450) /uL Baso # (Auto) (0-100) /uL PT (9.4-12.5) SECONDS INR (0.9-1.3) APTT (25.1-36.5) SECONDS Sodium (137-145) mmol/L Potassium (3.4-5.1) mmol/L Chloride (98-107) mmol/L Carbon Dioxide (22-32) mmol/L BUN (9-20) mg/dL Creatinine (0.66-1.25) mg/dL Estimated GFR (>60) mL/min BUN/Creatinine Ratio (6-22) Glucose (70-100) mg/dL Lactate 1.7 Calcium (8.4-10.2) mg/dL Total Bilirubin (0.2-1.3) mg/dL AST (17-59) IU/L ALT (<50) IU/L Alkaline Phosphatase (38-126) U/L Ammonia < 9 L (9-30) umol/L Total Protein (6.3-8.2) g/dL Albumin (3.5-5.0) g/dL Globulin (1.7-4.1) g/dL Albumin/Globulin Ratio (1.0-2.8) TSH (0.47-4.68) uIU/mL Prolactin (3.7-17.9) ng/mL Urine Color Yellow Urine Appearance Clear Urine pH 6.0 Normal (4.5-8.0) Ur Specific [place] 1.010 (1.000-1.035) Urine Protein Negative (Negative) Urine Glucose (UA) Negative (Negative) g/dL Urine Ketones Negative (NEGATIVE) Urine Occult Blood Trace-intact (Negative) Urine Nitrate Negative (Negative) Urine Bilirubin Negative (NEGATIVE) Urine Urobilinogen 0.2 (0.2) E.U./dL Ur Leukocyte Esterase Negative (NEGATIVE) Urine RBC 5-10/hpf H (0-5/HPF) Urine WBC 0-1/hpf (0-5/HPF) Ur Squamous Epith Cells 0-1 /hpf (0-5/HPF) Ur Transition Epith Cell 0-1/hpf (0-5/HPF) Urine Bacteria None seen (None) Vol Urine Centrifuged 10ml (spun) Salicylates (<20) mg/dL U Opiates 300ng/mL cut Negative (Negative) Ur Oxycodone Screen Negative (Negative) Urine Methadone Screen Negative (Negative) Acetaminophen (10-30) ug/mL Ur Barbiturates Screen Negative (Negative) U Tricyclic Antidepress Negative (Negative) Ur Phencyclidine Scrn Negative (Negative) Ur Amphetamines Screen Negative (Negative) U Methamphetamines Scrn Negative (Negative) Ur MDMA Scrn (Ecstasy) Negative (Negative) U Benzodiazepines Scrn Positive H (Negative) Urine Cocaine Screen Negative (Negative) U Marijuana (THC) Screen Positive H (Negative) Urine Specific [place] Normal (Normal) Ethyl Alcohol ( - 10) mg/dL Ur Creatinine Normal (Normal) 08/14/24 Range/Units 17:10 WBC (4.5-11.0) X10^3/uL RBC (4.5-5.9) X10^6/uL Hgb (13.5-17.5) g/dL Hct (41-53) % MCV (80-100) fL MCH (26-34) PG MCHC (30-36) % RDW (11.6-14.8) % Plt Count (150-400) X10^3/uL Neut % (Auto) (50-75) % Lymph % (Auto) (25-40) % [place] % (Auto) (3-14) % Eos % (Auto) (2-4) % Baso % (Auto) (0-2) % Neut # (Auto) (8809-7619) /uL Lymph # (Auto) (8244-5756) /uL [place] # (Auto) (0-900) /uL Eos # (Auto) (0-450) /uL Baso # (Auto) (0-100) /uL PT (9.4-12.5) SECONDS INR (0.9-1.3) APTT (25.1-36.5) SECONDS Sodium (137-145) mmol/L Potassium (3.4-5.1) mmol/L Chloride (98-107) mmol/L Carbon Dioxide (22-32) mmol/L BUN (9-20) mg/dL Creatinine (0.66-1.25) mg/dL Estimated GFR (>60) mL/min BUN/Creatinine Ratio (6-22) Glucose (70-100) mg/dL Lactate 1.0 Calcium (8.4-10.2) mg/dL Total Bilirubin (0.2-1.3) mg/dL AST (17-59) IU/L ALT (<50) IU/L Alkaline Phosphatase (38-126) U/L Ammonia (9-30) umol/L Total Protein (6.3-8.2) g/dL Albumin (3.5-5.0) g/dL Globulin (1.7-4.1) g/dL Albumin/Globulin Ratio (1.0-2.8) TSH (0.47-4.68) uIU/mL Prolactin (3.7-17.9) ng/mL Urine Color Urine Appearance Urine pH (4.5-8.0) Ur Specific [place] (1.000-1.035) Urine Protein (Negative) Urine Glucose (UA) (Negative) g/dL Urine Ketones (NEGATIVE) Urine Occult Blood (Negative) Urine Nitrate (Negative) Urine Bilirubin (NEGATIVE) Urine Urobilinogen (0.2) E.U./dL Ur Leukocyte Esterase (NEGATIVE) Urine RBC (0-5/HPF) Urine WBC (0-5/HPF) Ur Squamous Epith Cells (0-5/HPF) Ur Transition Epith Cell (0-5/HPF) Urine Bacteria (None) Vol Urine Centrifuged Salicylates (<20) mg/dL U Opiates 300ng/mL cut (Negative) Ur Oxycodone Screen (Negative) Urine Methadone Screen (Negative) Acetaminophen (10-30) ug/mL Ur Barbiturates Screen (Negative) U Tricyclic Antidepress (Negative) Ur Phencyclidine Scrn (Negative) Ur Amphetamines Screen (Negative) U Methamphetamines Scrn (Negative) Ur MDMA Scrn (Ecstasy) (Negative) U Benzodiazepines Scrn (Negative) Urine Cocaine Screen (Negative) U Marijuana (THC) Screen (Negative) Urine Specific [place] (Normal) Ethyl Alcohol ( - 10) mg/dL Ur Creatinine (Normal) Point of Care Testing Glucose POC 92 Point of care testing: Point of Care Testing Glucose POC 92 MDM Narrative Medical decision making narrative: 59-year-old male with history of seizure disorder, has had 40+ prior seizures apparently, arrived by EMS with shaking activity, glucose not felt to be low, shaking activity on arrival to the emergency department looked to be right upper and right lower extremity, not seeming to be moving his left upper or left lower extremity, preferring to have a right lateral neck position and right lateral gaze of his eyes, and attempting to speak with mumbling speech pattern that seemed unintelligible. No obvious facial droop. I could not get him to follow any commands. Glucose normal. IM Versed initially ordered but not immediately available, IM Ativan given. Patient had cessation of shaking activity and then seemed to be sleeping, maintaining his airway. IV access then obtained. IV Keppra [address] g load[address] Labs pending. CT head noncontrast scan ordered. CT head noncontrast scan, no acute changes, old changes noted. See radiology report. Labs summary: POC glucose 92 initial. White blood cell count 90085, hemoglobin 15, platelets 424. Sodium 146, potassium 5.5, serum CO2 15, serum chloride 105. BUN 17 with creatinine 1.14 normal renal function. Glucose 123. Liver functions normal. Ammonia level 177. Prolactin level 54. Ethanol level negative. Acetaminophen negative. Salicylate negative. Urine tox screen positive for benzodiazepine and THC. Initial lactate quite elevated, improved to 6, and then normalized. Consistent with recent motor activity/seizure activity. 1800, patient is still sleeping after presumed seizure activity. Apparently did take his Vimpat this afternoon. Further observation to see if mental status improves, for disposition planning. at bedside might be able to provide further history. Signed out to Dr Ignacio. 1916: Patient was reevaluated by me, patient is now talking, acting appropriately, no focal deficits, not post ictal. He is completely alert oriented, no focal deficits, patient is will be monitored until 1999, so long as patient does not have another seizure/seizure-like activity patient will be sent home and instructed to follow up with his care team, patient and at bedside understand agree with this plan 2007: Patient re-evaluated no new complaints it is time, still without any focal deficits no new seizures will be discharged home Discharge Plan Departure Patient Disposition: Home Clinical Impression: Breakthrough seizure Activity Restrictions/Additional Instructions: Please follow up with your neurologist and your care team Please read the discharge instructions sheet carefully and bring all papers to all doctor follow-up visits, as it may contain information that your doctor may want to see. Disease processes change and evolve, if your symptoms worsen or if you develop any new symptoms that are concerning to you please return for evaluation. Your evaluation today does not show any evidence of any life- threatening/serious illnesses requiring admission to the hospital or surgery. Please follow-up with your doctor for re-evaluation in approximately 1 day. Seek immediate medical attention for any worrisome symptoms. *If you do not have a primary care provider please contact the [facility] Resource line at [phone]. They will ask some questions about your medical history and help get you set up with a doctor in the community. Prescriptions: No Action clonazepam 0.5 mg tablet 0.5 mg PO BEDTIME PRN (Reason: insomnia) Qty: 30 0RF lacosamide 50 mg tablet 300 mg PO BID cholecalciferol (vitamin D3) 25 mcg (1,000 unit) capsule 25 mcg PO DAILY gabapentin 600 mg tablet 600 mg PO QID hydroxyzine HCl 50 mg tablet 25 mg PO BID PRN (Reason: anxiety) escitalopram oxalate 20 mg tablet 30 mg PO DAILY atomoxetine 25 mg capsule 25 mg PO BID quetiapine [Seroquel] 50 mg Tablet 50 mg PO QAM quetiapine [Seroquel] 25 mg Tablet 75 mg PO BEDTIME Referrals: Kassandra Blackwell ARNP [Primary Care Provider] - Stand Alone Forms: Patient Portal/API/Survey
--- NOTE | 2024-08-14 13:49 | DI.CT.S_ITS ---
PROCEDURE: CT HEAD/BRAIN WO CON INDICATIONS: alt MSE, possible seizure TECHNIQUE: Noncontrast 4.5 mm thick angled axial sections acquired from the foramen magnum to the vertex, with coronal and sagittal reformats. For radiation dose reduction, the following was used: automated exposure control, adjustment of mA and/or kV according to patient size. COMPARISON: None. FINDINGS: Image quality: Diagnostic. CSF spaces: Basal cisterns are patent. No extra-axial fluid collections. The ventricles are symmetric in size and shape. Brain: No intracranial bleeds or masses. There is cerebral volume loss for age, with resultant ventricular and sulcal prominence. There are periventricular and deep white matter chronic small vessel ischemic changes. Question posttraumatic encephalomalacia, anterior right temporal lobe/temporal tip. There is intracranial internal carotid artery atherosclerosis. Skull and face: Calvarium and visualized facial bones appear intact, without suspicious lesions. Sinuses: Visualized sinuses and mastoids are clear. IMPRESSION: No acute intracranial pathology. Possible remote traumatic injury to the right anterior temporal lobe. Dictated by: Donald Johns M.D. on 08/14/2024 at 14:24 Approved by: Donald Johns M.D. on 08/14/2024 at 14:25
[2024-08-14 13:55] LABS: Add Manual Diff / Slide Review NO; Basophils Absolute Auto 100 /uL (0-100); Basophils Percent Auto 0.7 % (0-2); Eosinophils Absolute Auto 400 /uL (0-450); Eosinophils Percent Auto 3.4 % (2-4); Hematocrit 46.9 % (41-53); Lymphocytes Absolute Auto 4400 /uL (1100-4500); Mean Corpuscular Volume 93.7 fL (80-100); Monocytes Absolute Auto 1500 /uL (0-900); Neutrophils Absolute Auto 5300 /uL (1500-7000); Neutrophils Percent Auto 44.9 % (50-75); Platelet Count 424 X10^3/uL (150-400); Red Cell Distribution Width 13.6 % (11.6-14.8); White Blood Cell Count 11.7 X10^3/uL (4.5-11.0)
[2024-08-14 14:05] LABS: Prothrombin Time 11.5 SECONDS (9.4-12.5)
[2024-08-14 14:07] LABS: PTT Partial Thromboplastin Tim 37 SECONDS (25.1-36.5)
[2024-08-14 14:13] LABS: Acetaminophen < 10 ug/mL (10-30); Alanine Aminotransferase 29 IU/L (<50); Albumin 5.1 g/dL (3.5-5.0); Albumin Globulin Ratio 1.1 (1.0-2.8); Alkaline Phosphatase 111 U/L (38-126); Aspartate Aminotransferase 37 IU/L (17-59); BUN Creatinine Ratio 14.9 (6-22); Bilirubin Total 0.8 mg/dL (0.2-1.3); Blood Urea Nitrogen 17 mg/dL (9-20); Carbon Dioxide 15 mmol/L (22-32); Chloride 105 mmol/L (98-107); Estimated Glomerular Filt Rate > 60 mL/min (>60); Ethanol (ETOH) < 10 mg/dL; Globulin 4.6 g/dL (1.7-4.1); Glucose 123 mg/dL (70-100); HEMOLYSIS 24 (0-50); Salicylate < 1.0 mg/dL (<20); Sodium 146 mmol/L (137-145); Total Protein 9.7 g/dL (6.3-8.2)
[2024-08-14 14:19] LABS: Ammonia (NH3) 177 umol/L (9-30)
--- NOTE | 2024-08-14 14:20 | PC.NURSE ---
seizure controlled. given 2mg ativan per JUL. able to answer simple questions. seizure precautions in place. patent airway. suction at bedside. julisa at bedside. last seizure was Apr [address] Holloway at [facility].
[2024-08-14 14:29] LABS: Potassium 5.5 mmol/L (3.4-5.1); Prolactin 54.1 ng/mL (3.7-17.9)
[2024-08-14] MEDS: SODIUM CHLORIDE 0.9% 1,000 ML 1000 ML IV (14:31)
[2024-08-14] MEDS: levETIRAcetam 2,000 MG in SODIUM CHLORIDE 0.9% 100 ML 480 MG IV (14:50)
[2024-08-14 15:05] LABS: Lactate (Lactic Acid) 6.8 mmol/L (0.7-2.1)
--- NOTE | 2024-08-14 15:12 | DI.RAD.S_ITS ---
PROCEDURE: XR CHEST 1V INDICATIONS: alt MSE, eval for aspiration TECHNIQUE: One view of the chest was acquired. COMPARISON: None. FINDINGS: Surgical changes and devices: Sternotomy wires and prosthetic heart valve are present. Atrial appendage clip noted. Lungs and pleura: Lungs are clear. No pleural effusions or pneumothorax. Mediastinum: Mediastinal contours appear normal. Heart size is normal. Bones and chest wall: No suspicious bony lesions. Overlying soft tissues appear unremarkable. IMPRESSION: No acute cardiopulmonary abnormality is seen. Approved by: José Land M.D. on 08/14/2024 at 15:35
[2024-08-14 15:16] LABS: Appearance Urine UA CLEAR; Bilirubin Urine UA NEGATIVE (NEGATIVE); Color Urine UA YELLOW; Glucose Urine UA NEGATIVE (Negative); Ketones Urine UA NEGATIVE (NEGATIVE); Leukocyte Esterase Urine UA NEGATIVE (NEGATIVE); Nitrite Urine UA NEGATIVE (Negative); Occult Blood Urine UA TRACE-INTACT (Negative); Protein Urine UA NEGATIVE (Negative); Urobilinogen Urine UA 0.2 E.U./dL (0.2)
[2024-08-14 15:17] LABS: Ur Creatinine Normal (Normal); Ur Specific Gravity Normal (Normal); Urine Tetrahydrocannabinol Positive (Negative); Urine pH Normal (Normal)
[2024-08-14 15:19] LABS: UR Morphine/Opiate cutoff 300 Negative (Negative); Urine Amphetamines Negative (Negative); Urine Barbiturates Negative (Negative); Urine Benzodiazepines Positive (Negative); Urine Cocaine Negative (Negative); Urine MDMA Negative (Negative); Urine Methadone Negative (Negative); Urine Methamphetamines Negative (Negative); Urine Oxycodone Negative (Negative); Urine Phencyclidine Negative (Negative); Urine Tricyclic Antidepressant Negative (Negative)
[2024-08-14 15:25] LABS: RBC Urine 5-10/HPF (0-5/HPF); Urine Volume 10mL (spun); WBC Urine 0-1/HPF (0-5/HPF)
[2024-08-14 15:26] LABS: Bacteria Urine None Seen; Squamous Epithelial Cell Urine 0-1 /HPF (0-5/HPF); Transitional Epi Cells Urine 0-1/HPF (0-5/HPF)
[2024-08-14 15:28] LABS: Thyroid Stimulating Hormone 4.39 uIU/mL (0.47-4.68)
[2024-08-14 16:18] LABS: Lactate (Lactic Acid) 1.7 mmol/L (0.7-2.1)
[2024-08-14 16:19] LABS: Ammonia (NH3) < 9 umol/L (9-30)
[2024-08-14 16:40] LABS: Reflexed Lactate in 2 Hours Y
[2024-08-18 11:13] LABS: Osmolality, Serum 291 mOsmol/kg (275-295)
== END 2024-08-14 20:32 | disposition home or self-care (01) ==
PROVIDERS: Emergency Medicine; Emergency Provider Student in an Organized Health Care Education/Training Program; PCP Nurse Practitioner
DX: G40.909 Epilepsy, unspecified, not intractable, without status epilepticus (principal); R41.82 Altered mental status, unspecified; I48.91 Unspecified atrial fibrillation; Z79.01 Long term (current) use of anticoagulants
CPT/HCPCS: 36415; 70450; 71045; 80053; 80305; 80320; 80329; 81001; 82140; 82962; 83605; 83930; 84146; 84443; 85025; 85610; 85730; 87040; 87077; 87086; 87186; 96365; 96375; 99284; 99285; G0480; J1953; J2060

== ENCOUNTER 2024-08-30 19:29 | Emergency (ER) | payer MEDICARE, SELFPAY ==
[2024-08-30] VITALS (8 sets, daily range): BP systolic 134–171; BP diastolic 92–106; PULSE 72–87; RESP 18–20; TEMP 36.6; O2SAT 94–98; BMI 35.2
--- NOTE | 2024-08-30 19:54 | PC.NURSE ---
Patient repeating Oh wow, oh wow, oh wow, and then became silent with twitching. Able to look me in the eye when I asked him to, and spoke in a strange voice nonsensical words. Answered my question when I asked him where he si that he is in [place]. When I said Are you aware that you are speaking strangely to me, he said yes, I'm acting weird and I know it. I just can't stop it. Wide states this is a psych problem I think. Vital signs stable.
--- NOTE | 2024-08-30 19:59 | DI.RAD.S_ITS ---
PROCEDURE: XR CHEST 1V INDICATIONS: altered mental status TECHNIQUE: One view of the chest was acquired. COMPARISON: [facility], CR, XR CHEST 1V, 08/14/2024, 15:12. FINDINGS: Surgical changes and devices: Sternotomy wires and mediastinal clips are seen. There is a closure device seen overlying the central mediastinum. There is a mitral valve annular prosthesis. Lungs and pleura: Lungs are clear. No pleural effusions or pneumothorax. Mediastinum: The cardiac contours are within normal limits. The aorta demonstrates calcification and tortuosity. Bones and chest wall: No suspicious bony lesions. Age-appropriate bony degenerative changes are seen. Remote left-sided rib fractures can be seen. Overlying soft tissues appear unremarkable. IMPRESSION: Clear lungs. Postoperative and degenerative changes are seen. Remote left sided rib fractures are seen. Dictated by: Hao Ventura M.D. on 08/30/2024 at 19:44 Approved by: Hao Ventura M.D. on 08/30/2024 at 19:45
[2024-08-30 20:12] LABS: Add Manual Diff / Slide Review NO; Basophils Absolute Auto 0 /uL (0-100); Basophils Percent Auto 0.3 % (0-2); Eosinophils Absolute Auto 100 /uL (0-450); Eosinophils Percent Auto 0.6 % (2-4); Hematocrit 40.6 % (41-53); Hemoglobin 13.5 g/dL (13.5-17.5); Lymphocytes Absolute Auto 1500 /uL (1100-4500); Lymphocytes Percent Auto 13.9 % (25-40); Mean Corpuscular HGB Conc 33.4 % (30-36); Mean Corpuscular Hemoglobin 29.9 PG (26-34); Mean Corpuscular Volume 89.6 fL (80-100); Monocytes Absolute Auto 900 /uL (0-900); Monocytes Percent Auto 8.3 % (3-14); Neutrophils Absolute Auto 8300 /uL (1500-7000); Neutrophils Percent Auto 76.9 % (50-75); Platelet Count 306 X10^3/uL (150-400); Red Blood Cell Count 4.53 X10^6/uL (4.5-5.9); Red Cell Distribution Width 13.4 % (11.6-14.8); White Blood Cell Count 10.8 X10^3/uL (4.5-11.0)
--- NOTE | 2024-08-30 20:12 | EKG_ITS ---
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
[2024-08-30 20:23] LABS: Alanine Aminotransferase 21 IU/L (<50); Albumin 4.5 g/dL (3.5-5.0); Albumin Globulin Ratio 1.3 (1.0-2.8); Alkaline Phosphatase 103 U/L (38-126); Ammonia (NH3) 13 umol/L (9-30); Aspartate Aminotransferase 29 IU/L (17-59); BUN Creatinine Ratio 19.5 (6-22); Bilirubin Total 0.5 mg/dL (0.2-1.3); Blood Urea Nitrogen 16 mg/dL (9-20); Calcium 9.3 mg/dL (8.4-10.2); Carbon Dioxide 27 mmol/L (22-32); Chloride 98 mmol/L (98-107); Estimated Glomerular Filt Rate > 60 mL/min (>60); Globulin 3.5 g/dL (1.7-4.1); Glucose 112 mg/dL (70-99); HEMOLYSIS < 15 (0-50); Potassium 3.7 mmol/L (3.4-5.1); Sodium 133 mmol/L (137-145)
--- NOTE | 2024-08-30 20:51 | PC.NURSE ---
Assisted patient to change into new depends and pants due to incontinence.
[2024-08-30 20:58] LABS: Ur Creatinine Normal (Normal); Ur Specific Gravity Normal (Normal); Urine pH Normal (Normal)
[2024-08-30 20:59] LABS: UR Morphine/Opiate cutoff 300 Negative (Negative); Urine Amphetamines Negative (Negative); Urine Barbiturates Negative (Negative); Urine Benzodiazepines Positive (Negative); Urine Cocaine Negative (Negative); Urine MDMA Negative (Negative); Urine Methadone Negative (Negative); Urine Methamphetamines Negative (Negative); Urine Oxycodone Negative (Negative); Urine Phencyclidine Negative (Negative); Urine Tetrahydrocannabinol Positive (Negative); Urine Tricyclic Antidepressant Negative (Negative)
[2024-08-30 21:05] LABS: Bacteria Urine Many (>30); Culture Indicated Urine Specimen Cultured; RBC Urine 0-1/HPF (0-5/HPF); Squamous Epithelial Cell Urine 0-1 /HPF (0-5/HPF); Urine Volume 10mL (spun); WBC Urine 5-10/HPF (0-5/HPF)
[2024-08-30 21:30] LABS: Lactate (Lactic Acid) 0.7 mmol/L (0.7-2.1)
--- NOTE | 2024-08-30 22:30 | ED.GENADULT ---
HPI - General Adult General Chief complaint: Altered Mental Status Stated complaint: seizure disorder x 2days Time Seen by Provider: 08/30/24 21:06 Source: patient Mode of arrival: Ambulatory History of Present Illness HPI narrative: 59-year-old male with history of seizure disorder for which she has been prescribed Vimpat in the past, was here 08/14/2024 with seizure activity treated with benzodiazepine and eventually his Vimpat, was sent home, presenting again with family requests for MRI brain imaging which was performed but no acute changes noted, still taking oral Vimpat, having frequent breakthrough shaking like activity. Also recent diagnosis of urinary tract infection for which he is taking antibiotic, believed to be cefdinir. Related Data Home Medications Medication Instructions Recorded Confirmed cholecalciferol (vitamin D3) 25 25 mcg PO DAILY 01/06/20 08/30/24 mcg (1,000 unit) capsule lacosamide 50 mg tablet 300 mg PO BID 11/23/21 08/30/24 atomoxetine 25 mg capsule 40 mg PO DAILY 08/14/24 08/30/24 escitalopram oxalate 20 mg tablet 30 mg PO DAILY 08/14/24 08/30/24 gabapentin 600 mg tablet 600 mg PO QID 08/14/24 08/30/24 hydroxyzine HCl 50 mg tablet 25 mg PO BID PRN anxiety 08/14/24 08/30/24 quetiapine 25 mg tablet (Seroquel) 50 mg PO BEDTIME 08/14/24 08/30/24 chlordiazepoxide HCl 10 mg capsule 10 mg PO DAILY 08/30/24 08/30/24 Previous Rx's Medication Instructions Recorded clonazepam 0.5 mg tablet 0.5 mg PO BEDTIME PRN insomnia #30 12/18/22 tabs cefdinir 300 mg capsule 300 mg PO BID 10 days #20 caps 08/31/24 Allergies Allergy/AdvReac Type Severity Reaction Status Date / Time ketorolac [From Toradol] AdvReac Severe Hyponatremi Verified 08/30/24 19:54 a oxycodone AdvReac Severe hallucinations, Verified 08/30/24 19:54 delirium Patient History Medical History (Updated 08/31/24 @ 05:39 by Sohail Adair MD) Chronic left shoulder pain Allergic rhinitis Surgical History (Updated 06/01/21 @ 09:06 by João Armstrong MD) Status post mitral valve repair Social History Smoking Status: Never smoker Smoking Status: Never smoker Exam Narrative Exam Narrative: GENERAL: Well-developed patient, in mild distress. HEAD: Atraumatic. Normocephalic. EYES: Pupils equal round and reactive. Extraocular motions intact. No scleral icterus. No injection or drainage. ENT: Nose without bleeding, purulent drainage. Throat without erythema, tonsillar hypertrophy or exudate. Airway patent. NECK: Trachea midline. Non tender CARDIOVASCULAR: Regular rate and rhythm without murmurs, gallops, or rubs. RESPIRATORY: Clear to auscultation. Breath sounds equal bilaterally. No wheezes, rales, or rhonchi. GASTROINTESTINAL: Abdomen soft, non-tender, nondistended. EXTREMITIES: No edema or joint tenderness. BACK: Nontender without deformity or crepitance. No flank tenderness. NEURO: AOx3. Motor functions grossly nonfocal. Intermittently has tremulous like activity, able to speak during tremulous activity, one time stating no no no repeatedly, another time stating whoa whoa whoa repeatedly SKIN: No rash or erythema of visible areas Initial Vital Signs Initial Vital Signs: Vital Signs Temperature 98 F 08/30/24 19:42 Pulse Rate 87 08/30/24 19:42 Respiratory Rate 18 08/30/24 19:42 Blood Pressure 171/106 H 08/30/24 19:42 Pulse Oximetry 95 08/30/24 19:42 Oxygen Delivery Method Room Air 08/30/24 19:42 Course Orders Ordered: ED Orders 08/30/24 21:12 Lactate (Lactic Acid) Stat 08/30/24 23:10 Blood Culture Stat Discontinued Medications Clonazepam (Clonazepam 0.5 Mg Tablet) 1 mg PO NOW ONE Stop: 08/31/24 01:56 Last Admin: 08/31/24 02:12 Dose: 1 mg Documented By: JANUARY Gabapentin (Gabapentin 600 Mg Tablet) 600 mg PO NOW ONE Stop: 08/30/24 23:33 Last Admin: 08/30/24 23:50 Dose: 600 mg Documented By: JANUARY Ceftriaxone Sodium 1,000 mg/ (Sodium Chloride) 100 mls @ 200 mls/hr IV NOW ONE Stop: 08/30/24 22:31 Last Infusion: 08/30/24 23:43 Dose: Infused Documented By: Admin: 08/30/24 22:58 Dose: 200 mls/hr Documented By: JANUARY Lorazepam (Lorazepam 2 Mg/Ml Inj) 2 mg IV NOW ONE Stop: 08/30/24 22:36 Last Admin: 08/30/24 22:38 Dose: 2 mg Documented By: JANUARY Vital Signs Vital signs: Vital Signs - 8 hr 08/30/24 22:00 08/30/24 22:00 08/30/24 22:30 Pulse Rate 83 80 Respiratory Rate Blood Pressure 164/99 H Pulse Oximetry 98 98 Oxygen Delivery Method Oxygen Flow Rate 08/30/24 22:30 08/30/24 22:30 08/30/24 23:00 Pulse Rate 80 75 Respiratory Rate Blood Pressure 158/99 H Pulse Oximetry 98 96 Oxygen Delivery Method Oxygen Flow Rate 08/30/24 23:01 08/30/24 23:01 08/30/24 23:30 Pulse Rate 77 Respiratory Rate 20 Blood Pressure 134/92 H 151/95 H Pulse Oximetry 96 Oxygen Delivery Method Oxygen Flow Rate 08/30/24 23:30 08/31/24 00:00 08/31/24 00:01 Pulse Rate 72 78 Respiratory Rate Blood Pressure 172/110 H Pulse Oximetry 94 Oxygen Delivery Method Oxygen Flow Rate 08/31/24 00:01 08/31/24 00:02 08/31/24 00:02 Pulse Rate 77 78 Respiratory Rate 18 Blood Pressure 180/84 H Pulse Oximetry 98 98 Oxygen Delivery Method Oxygen Flow Rate 08/31/24 00:30 08/31/24 00:30 08/31/24 01:00 Pulse Rate 69 Respiratory Rate 24 Blood Pressure 166/99 H 151/91 H Pulse Oximetry 97 Oxygen Delivery Method Oxygen Flow Rate 08/31/24 01:00 08/31/24 01:30 08/31/24 01:30 Pulse Rate 73 67 Respiratory Rate 29 H 31 H Blood Pressure 151/96 H Pulse Oximetry 97 97 Oxygen Delivery Method Oxygen Flow Rate 08/31/24 02:00 08/31/24 02:00 08/31/24 02:30 Pulse Rate 66 68 Respiratory Rate 23 28 H Blood Pressure 163/95 H Pulse Oximetry 97 96 Oxygen Delivery Method Oxygen Flow Rate 08/31/24 02:31 08/31/24 02:31 08/31/24 03:00 Pulse Rate 72 79 Respiratory Rate 23 21 Blood Pressure 162/93 H Pulse Oximetry 96 96 Oxygen Delivery Method Oxygen Flow Rate 08/31/24 03:00 08/31/24 03:30 08/31/24 03:30 Pulse Rate 64 Respiratory Rate 20 Blood Pressure 159/102 H 138/92 H Pulse Oximetry 93 Oxygen Delivery Method Nasal Cannula Oxygen Flow Rate 1 Medical Decision Making Lab Data Lab results reviewed: Yes I reviewed the patient's lab results. Lab results narrative: White blood cell count 14425, hemoglobin 13.5, platelets adequate. Glucose 112. Normal renal function. Serum CO2 27 not decreased. Sodium 133. Potassium 2.7 normal. Liver functions unremarkable. 08/30/24 20:05 08/30/24 20:05 Labs: Lab Results 08/30/24 08/30/24 08/30/24 Range/Units 20:05 20:38 21:12 WBC 10.8 (4.5-11.0) X10^3/uL RBC 4.53 (4.5-5.9) X10^6/uL Hgb 13.5 (13.5-17.5) g/dL Hct 40.6 L (41-53) % MCV 89.6 (80-100) fL MCH 29.9 (26-34) PG MCHC 33.4 (30-36) % RDW 13.4 (11.6-14.8) % Plt Count 306 (150-400) X10^3/uL Neut % (Auto) 76.9 H (50-75) % Lymph % (Auto) 13.9 L (25-40) % [place] % (Auto) 8.3 (3-14) % Eos % (Auto) 0.6 L (2-4) % Baso % (Auto) 0.3 (0-2) % Neut # (Auto) 8300 H (5740-7343) /uL Lymph # (Auto) 1500 (6993-2464) /uL [place] # (Auto) 900 (0-900) /uL Eos # (Auto) 100 (0-450) /uL Baso # (Auto) 0 (0-100) /uL Sodium 133 L (137-145) mmol/L Potassium 3.7 (3.4-5.1) mmol/L Chloride 98 (98-107) mmol/L Carbon Dioxide 27 (22-32) mmol/L BUN 16 (9-20) mg/dL Creatinine 0.82 (0.66-1.25) mg/dL Estimated GFR > 60 (>60) mL/min BUN/Creatinine Ratio 19.5 (6-22) Glucose 112 H (70-99) mg/dL Lactate 0.7 (0.7-2.1) mmol/L Calcium 9.3 (8.4-10.2) mg/dL Total Bilirubin 0.5 (0.2-1.3) mg/dL AST 29 (17-59) IU/L ALT 21 (<50) IU/L Alkaline Phosphatase 103 (38-126) U/L Ammonia 13 (9-30) umol/L Total Protein 8.0 (6.3-8.2) g/dL Albumin 4.5 (3.5-5.0) g/dL Globulin 3.5 (1.7-4.1) g/dL Albumin/Globulin Ratio 1.3 (1.0-2.8) Urine RBC 0-1/hpf (0-5/HPF) Urine WBC 5-10/hpf H (0-5/HPF) Ur Squamous Epith Cells 0-1 /hpf (0-5/HPF) Urine Bacteria Many (>30) H (None) Ur Culture Indicated? Specimen cultured Vol Urine Centrifuged 10ml (spun) U Opiates 300ng/mL cut Negative (Negative) Ur Oxycodone Screen Negative (Negative) Urine Methadone Screen Negative (Negative) Ur Barbiturates Screen Negative (Negative) U Tricyclic Antidepress Negative (Negative) Ur Phencyclidine Scrn Negative (Negative) Ur Amphetamines Screen Negative (Negative) U Methamphetamines Scrn Negative (Negative) Ur MDMA Scrn (Ecstasy) Negative (Negative) U Benzodiazepines Scrn Positive H (Negative) Urine Cocaine Screen Negative (Negative) U Marijuana (THC) Screen Positive H (Negative) Urine pH Normal (Normal) Urine Specific [place] Normal (Normal) Ur Creatinine Normal (Normal) Urine Dip Bedside Urine Glucose Negative Bedside Urine Bilirubin - Negative Bedside Urine Ketone - Negative Urine Specific [place] 1.015 Bedside Urine Occult Blood +/- Bedside Urine pH 7.0 Bedside Urine Protein - Negative Bedside Urine Urobilinogen - Negative Bedside Urine Nitrite + Positive Bedside Urine Leukocytes + 70 Esterase Point of care testing: Urine Dip Bedside Urine Glucose Negative Bedside Urine Bilirubin - Negative Bedside Urine Ketone - Negative Urine Specific [place] 1.015 Bedside Urine Occult Blood +/- Bedside Urine pH 7.0 Bedside Urine Protein - Negative Bedside Urine Urobilinogen - Negative Bedside Urine Nitrite + Positive Bedside Urine Leukocytes + 70 Esterase MDM Narrative Medical decision making narrative: 59-year-old male with history of seizure disorder for which he has been prescribed Vimpat, also history of bipolar disorder on multiple medications, has intermittent atypical shaking, able to speak through his shaking episodes. No fever on triage. We will give oral evening dose of Vimpat. Patient with some tremulousness, able to speak through the tremulousness. IV 2 mg Ativan. History of urinary tract infection for which he has been prescribed cefdinir, urine culture from 08/19/2024 showed 50,000 colonies Citrobacter species, sensitive to cephalosporins. Urinalysis today suspicious for infection, urine culture requested. IV ceftriaxone given. Continue taking cefdinir course. Patient had additional agitation, stating whoa whoa whoa while having slight tremulous like activity. IV clonazepam. Patient further observed, improved. Had taken in his evening medications. He would like to go home. Discharged home with . Stated that he would contact his neurologist in 2 days Sunday morning. Return precautions discussed. Discharge Plan Departure Patient Disposition: Home Clinical Impression: Seizure disorder, Urinary tract infection Activity Restrictions/Additional Instructions: History of seizure disorder, history of bipolar disorder, history of substance abuse in the past previously taking Librium, having possible seizure activity, though able to speak during the actual events repetitively stating ?no no no? and later repetitively stating ?whoa whoa whoa. Evening dose Vimpat and other chronic medications given. IV dose of Ativan given. Later dose of IV clonazepam also given. Symptoms seemed to be improved. Patient conversant, requesting to go home. Stated that he will contact his neurologist tomorrow during regular hours likely by phone, for guidance on further medication regimen recommendations. Late entry. Patient was given ceftriaxone for UTI, prior prescription for cefdinir antibiotic for Citrobacter species urinary tract infection. Additional 10 day course prescribed for possible new infection. Sent to his pharmacy. RN to inform patient of suspected additional UTI diagnosis from this visit. Prescriptions: New cefdinir 300 mg capsule 300 mg PO BID 10 Days Qty: 20 0RF No Action clonazepam 0.5 mg tablet 0.5 mg PO BEDTIME PRN (Reason: insomnia) Qty: 30 0RF lacosamide 50 mg tablet 300 mg PO BID cholecalciferol (vitamin D3) 25 mcg (1,000 unit) capsule 25 mcg PO DAILY gabapentin 600 mg tablet 600 mg PO QID hydroxyzine HCl 50 mg tablet 25 mg PO BID PRN (Reason: anxiety) escitalopram oxalate 20 mg tablet 30 mg PO DAILY atomoxetine 25 mg capsule 40 mg PO DAILY quetiapine [Seroquel] 25 mg Tablet 50 mg PO BEDTIME chlordiazepoxide HCl [Librium] 10 mg Capsule 10 mg PO DAILY Referrals: César Damico MD [Primary Care Provider] - Stand Alone Forms: Patient Portal/API/Survey
--- NOTE | 2024-08-30 22:32 | PC.NURSE ---
Noted pts head shaking and repeatedly saying No. No. No. O2 sats dropped to mid 80's. Episode lasted approx 45 seconds and pt then returns to baseline. Dr. Adair at bedside. Verbal order for Ativan 2mg, then states to get home meds on board prior to Ativan administration if possible.
[2024-08-30] MEDS: LORazepam 2 MG/ML INJ IV (22:38)
--- NOTE | 2024-08-30 22:47 | PC.NURSE ---
Pt noted to become repetitive with words again, head shaking and not responding to stimuli. Ativan 2mg IV given as previously ordered. Episode lasted approx 30 sec before pt returned to baseline.
[2024-08-30] MEDS: cefTRIAXone 1,000 MG in SODIUM CHLORIDE 0.9% 100 ML 200 MG IV (22:58)
[2024-08-30] MEDS: GABAPENTIN 600 MG TABLET PO (23:50)
[2024-08-31] VITALS (11 sets, daily range): BP systolic 138–180; BP diastolic 84–110; PULSE 64–79; RESP 18–31; O2SAT 93–98
[2024-08-31] MEDS: clonazePAM 0.5 MG TABLET 1 MG PO (02:12)
--- NOTE | 2024-08-31 02:18 | PC.NURSE ---
Pt noted to have repeat seizure activity in this ED. Pt shakes his head and verbalize the word no during episodes for 45-60 sec then returns to baseline. No loss of bowel or bladder during these and pt is able to maintain airway. Pt was given 2mg lorazepam IV at 22:38 after a seizure. Another seizure noted at 00:15, similar to prior episodes. MD was notified. No new orders given. Seizure activity reoccurred at 00:35, 01:40, 01:55, 02:10 and 02:00 with the latter lasting over 1 min and pt desating to mid 80's on the monitor. New order for clonazepam placed, given. Pt currently resting w/eyes closed. GCS 15. Sats 95% RA.
--- NOTE | 2024-08-31 09:45 | PC.NURSE ---
Overnight charge nurse asked this RN to call patient to inform them that the cefdinir that was ordered was sent to [facility]. I called patient and patient spouse and they answered and were happy for the information and thanked this RN and stated that they would pick it up.
== END 2024-08-31 04:05 | disposition home or self-care (01) ==
PROVIDERS: Emergency Provider Emergency Medicine; PCP Internal Medicine
DX: G40.909 Epilepsy, unspecified, not intractable, without status epilepticus (principal); N39.0 Urinary tract infection, site not specified
CPT/HCPCS: 36415; 71045; 80053; 80305; 81003; 81015; 82140; 83605; 85025; 87040; 87077; 87086; 87186; 93005; 93010; 96365; 96375; 99285; J0696; J2060